=== PATIENT | female | born 1950 | race Caucasian/White ===

== ENCOUNTER → 2016-09-18 09:54 | Outpatient (CLI) | payer MEDICARE, OTHER ==
--- NOTE | 2016-09-18 10:58 | NUR ---
DIABETIC EDUCATION SPOUSE PRESENT WITH PT. REPORTS DM FOR PAST 3 YEARS. HAD DIET EDU SEVERAL TIMES WHEN FIRST DX'D. STATES SHE DID WELL UNTIL DIETITIAN MOVED AWAY. STATES SHE "FELL OFF THE WAGON". PT DOES HAVE GLUCOMETER AND CHECKS BS AM DAILY. REVIEWED CARB SOURCES, APPROPRIATE CARB CHOICES PER MEAL, SERVING SIZES. REVIEWED LABEL READING X2. ENCOURAGED LESS SODA, SWEET TEA. ALSO ENCOURAGE PT TO CHECK BS REGULARLY FOR A WEEK OR TWO TO SEE HOW HER BLOOD SUGAR IS RUNNING THRU OUT THE DAY. ADJUST CARB INTAKE ACCORDINGLY. ENCOURAGED GRADUAL INCREASE IN PHYSICAL ACTIVITY. EXPECT GOOD COMPLIANCE. ~ [address] FOLLOWING
== END | disposition home or self-care (01) ==
LOC: D.FANS 09:54 → D.MAMMO 11:00
DX: E11.9 Type 2 diabetes mellitus without complications (principal)

== ENCOUNTER 2017-08-06 10:43 | Outpatient (CLI) | payer MEDICARE, OTHER ==
[~2017-08-06] VITALS: Ht 152.4 cm; Wt 68.2 kg
--- NOTE | ~2017-08-06 | CN ---
PATIENT NAME:YENY MA MEDICAL RECORD: [id number] : 46 LOCATION:[facility]RIAN ADMIT DATE: ACCOUNT: [id number] CONSULTING PHYSICIAN: FRAN HALE MD REFERRING PHYSICIAN: ANASTACIO ADEN M.D. DATE OF CONSULTATION: 08/06/2017 REFERRING PHYSICIAN: Graham Aden MD BOTTLE DEALER: Fran Hale MD REASON FOR CONSULTATION: Coronary artery disease and aortic stenosis. HISTORY OF PRESENT ILLNESS: This patient was seen as an outpatient following the heart catheterization. She reports that up until about [place], she had been doing quite well, occasionally would have some dyspnea after walking about a mile, but was able to play tennis last fall. The patient reports that after an episode at [place], she had near syncope, chest pain under both axillae, and significant dyspnea with exertion. It did not recur. She underwent workup which included echocardiogram by Dr. Aden revealing significant aortic stenosis, valve area of 0.8 and heart catheterization today revealing significant 2-vessel coronary artery disease including diagonal branch with severe proximal LAD stenosis. Risk factors are positive for hypertension and hyperlipidemia. PAST MEDICAL HISTORY: Otherwise unremarkable. PAST SURGICAL HISTORY: Unremarkable. ALLERGIES: As listed. MEDICATIONS: As listed. SOCIAL HISTORY: Negative for tobacco and alcohol. FAMILY HISTORY: Negative. REVIEW OF SYSTEMS: Multipoint review of systems is negative, particularly no history of stroke or hematologic disorders. PHYSICAL EXAMINATION: GENERAL: Alert female, supine on the bed following cardiac catheterization, right wrist pressure intact at the cath site. HEENT: Head is atraumatic. Pupils equal, round and reactive to light. Extraocular movements intact. Sclerae nonicteric. Oral mucosa pink and moist. Carotids have no audible bruits, no lymphadenopathy. NECK: No palpable thyromegaly. No jugular venous distention noted. HEART: Regular rate and rhythm with a II/ systolic murmur heard loudest at the left precordium. LUNGS: Clear to auscultation bilaterally. No rales, rhonchi or wheeze noted. ABDOMEN: No palpable mass, tenderness, or organomegaly. EXTREMITIES: There is palpable bilateral 2+ femoral pulse and palpable left radial pulse. Dressing intact to the right radial. Lower extremities had no signs of vein stripping, varicose veins, cyanosis, clubbing or edema. SKIN: Normal and intact with no rashes or lesions. CONSULT REPORT [id number] YENY MA NEUROLOGIC: Intact. Cranial nerves intact. Gait not checked. ASSESSMENT: Multivessel coronary artery disease and aortic stenosis. PLAN: This patient is a good candidate for coronary bypass graft and aortic valve replacement. I discussed with the patient the alternatives, risks, benefits and recovery and her was present for the conversation. She is a hairdresser. We discussed about 8 weeks for returning to even light duty work. She gives consent. The plan will be for surgery on 08/10/2017. TRANSINT:[id number] Voice Confirmation ID: [id number] DOCUMENT ID: [id number] FRAN HALE MD at 1423 CC: ANASTACIO ADEN M.D. and MADELIN GARCIA MD [id number] DICTATION DATE: 08/06/171711 ACCOUNTING CLERKS SUPERVISOR: 08/06/17 190 DEP CLI 08/06/17 [address] [place] [address]
--- NOTE | ~2017-08-06 | HEMODYNAMI ---
PATIENT:YENY MA MEDICAL RECORD: [id number] : 46 LOCATION:[facility] ADMISSION DATE: 08/06/17 Generatedon:08/06/201713:31 Patient name: YENY MA Patient #: [id number] SSN: DO B: 1950 Date of study: 08/06/2017 Page: Of Hemodynamic Procedure Report Patient Data Patient Demographics Procedure consent was obtained First Name: YENY Gender: Female Last Name: ANIL : 1950 Patient #: [id number] Age: 66 year(s) Race: Unknown Additional ID: [id number] Contact details [address]: [address] [place] [address] State: [place] City: [place] Zip code: [address] Admission Admission Data Admission Date: 08/06/2017 Admission Time: 10:43 Procedure Procedure Types Cath Procedure Diagnostic Procedure LHC Coronaries only Aortic Root Angiography Procedure Description Procedure Date Procedure Date: 08/06/2017 Procedure Start Time: 13:14 Procedure End Time: 13:30 Procedure Staff Name Function Graham Aden MD Performing Physician Samy Quintana RT Monitor Jeffy Nielson RT Scrub Jono Barrios RN Nurse Procedure Data Cath Procedure Fluoroscopy Diagnostic fluoroscopy Total fluoroscopy Time: 2.1 time: 2.1 min min Diagnostic fluoroscopy Total fluoroscopy dose: 155 dose: 155 mGy mGy Contrast Material Contrast Material Type Amount (ml) Isovue 300 80 Entry Location Entry Primary Successful Side Size Upsize Upsize Entry Closure Nieves ccessful Closure Location (Fr) 1 (Fr) 2 (Fr) Remarks Device Remarks Radial Right 6 Fr Mechanical artery Short Compression Estimated blood loss: 10 ml Diagnostic catheters Device Type Used For End Catheter Placement DIAGNOSTIC Troutman 110cm 5 Procedure Fr catheter ([id number]) DIAGNOSTIC Pigtail 5Fr Procedure catheter ([id number]) Procedure Complications No complications Procedure Medications Medication Administration Route Dosage Oxygen NC 2 l/min Heparin Flush Bag added to field 2 bags (1000units/500ml NS) 0.9% NaCl I.V. 100 ml/hr Radial Cocktail added to field 1 syringe (Verapomil 2mg/Nitro 400mcg/Heparin 1500units) Fentanyl I.V. 50 mcg Versed I.V. 1 mg Fentanyl I.V. 50 mcg Versed I.V. 1 mg Radial Cocktail added to field 1 syringe (Verapomil 2mg/Nitro 400mcg/Heparin 1500units) Hemodynamics Rest Heart Rate: 79 (bpm) Pressure Samples Time Site Value (mmHg) Purpose Heart Use Rate(bpm) 13:18 AO 93/61(74) Snapshot 93 Snapshots Pre Cath Intra NCS Post Cath Vital Signs Time Heart Resp SPO2 etCO2 NIBP (mmHg) Rhythm Pain Sedation Rate (ipm) (%) (mmHg) Status Level (bpm) 13:03:39 80 18 96 0 143/82(110) NSR 0 (11) 10(A) , No pain 13:08:01 95 20 96 32.4 153/85(119) NSR 0 (11) 10(A) , No pain 13:12:19 80 17 88 31.7 127/67(96) NSR 0 (11) 10(A) , No pain 13:16:37 77 16 95 30.2 125/66(102) NSR 0 (11) 9(A) , No pain 13:20:55 84 17 95 31 110/59(83) NSR 0 (11) 9(A) , No pain 13:25:09 86 17 94 32.4 119/62(93) NSR 0 (11) 9(A) , No pain 13:28:09 81 16 93 25.8 128/70(93) NSR 0 (11) 9(A) , No pain Medications Time Medication Route Dose Verified Delivered Reason Notes Effectiveness by by 13:01:54 Oxygen NC 2 l/min Graham Jono Per Markie Barrios RN physician 13:02:02 Heparin Flush added 2 bags Graham De La Cruz used for Bag to Markie Barrios project internship (1000units/500ml field NS) 13:02:15 0.9% NaCl I.V. 100 Graham Jono Per ml/hr Markie Barrios RN physician 13:02:23 Radial Cocktail added 1 Graham Jono used for (Verapomil to syringe Markie Barrios project internship 2mg/Nitro field 400mcg/Heparin 1500units) 13:08:03 Fentanyl I.V. 50 mcg Graham Jono for sedation Markie Barrios RN 13:08:09 Versed I.V. 1 mg Graham Jono for sedation Markie Barrios RN 13:14:33 Fentanyl I.V. 50 mcg Graham Jono for sedation Markie Barrios RN 13:14:37 Versed I.V. 1 mg Graham Jono for sedation Markie Barrios RN 13:17:13 Radial Cocktail added 1 Graham Jono for (Verapomil to syringe Markie Barrios RN vasodilation 2mg/Nitro field 400mcg/Heparin 1500units) Procedure Log Time Note 12:40:08 Jefyf Nielson RT(R) sent for patient. Start room use. 12:52:08 Time tracking: Regular hours 12:52:12 Plan of Care:Hemodynamics will remain stable., Cardiac rhythm will remain stable., Comfort level will be maintained., Respiratory function will remain adequate., Patient/ family verbilizes understanding of procedure., Procedure tolerated without complication., Recovers from procedure without complications.. 12:54:58 Patient received from Pre/Post Procedure Room to [facility] Alert and oriented. Tansferred to table in Supine position. 12:54:59 Warm blankets applied, and maría hugger turned on for patient comfort. 12:55:00 Correct patient and procedure confirmed by team. 12:55:01 Signed procedure consent form obtained from patient. 12:55:01 ECG and BP/O2 sat monitors applied to patient. 13:01:54 Oxygen 2 l/min NC was administered by Jono Barrios RN; Per physician; 13:02:02 Heparin Flush Bag (1000units/500ml NS) 2 bags added to field was administered by Jono Barrios RN; used for procedure; 13:02:15 0.9% NaCl 100 ml/hr I.V. was administered by Jono Barrios RN; Per physician; 13:02:23 Radial Cocktail (Verapomil 2mg/Nitro 400mcg/Heparin 1500units) 1 syringe added to field was administered by Jono Barrios RN; used for procedure; 13:02:25 Vital chart was started 13:04:00 Baseline sample Acquired. 13:04:06 Rhythm: sinus rhythm 13:04:07 Full Disclosure recording started 13:04:26 H&P Date Dictated: 07/11/2017 Within 30 days and on chart., H&P Addendum completed by physician on day of procedure. (MUST COMPLETE FOR ALL OUTPATIENTS). 13:04:26 Pre-procedure instructions explained to patient. 13:04:27 Pre-op teaching completed and patient verbalized understanding. 13:04:39 Family in patients room. 13:04:40 Patient NPO since Midnight. 13:04:42 Is the patient allergic to Iodine/contrast media? No. 13:04:45 Is patient on blood thinner?No 13:05:30 Patient diabetic? Yes. 13:05:31 If diabetic: On Metformin? Yes 13:05:33 If on Metformin: Last Dose? 08/04/2017 13:05:47 Patient not . Patient is over age 55. 13:05:50 Previous problem with sedation/anesthesia? No ? 13:06:02 Snore? Yes 13:06:05 Sleep apnea? No 13:06:06 Deviated septum? No 13:06:07 Opens mouth fully? Yes 13:06:08 Sticks out tongue? Yes 13:06:17 Airway obstruction? Yes Asthma 13:06:22 Dentures? No ? 13:06:26 Pre procedure: right dorsailis pedis pulse 1+ Palpable, but thready & weak; easily obliterated 13:06:29 Modified Panchito's test Ulnar < 7 seconds 13:06:31 Patient pain scale 0/10 ?. 13:06:35 IV patent on arrival in left forearm with 0.9% NaCl at KVO. 13:06:38 Lab results completed and on chart. 13:06:57 Right Radial & Right Groin area was prepped with chlora-prep and draped in sterile fashion 13:06:58 Alarms reviewed by R. N. 13:06:59 Sharps counted by scrub and verified by R.N. 13:07:02 --------ALL STOP TIME OUT------ 13:07:02 Final Timeout: patient, procedure, and site verified with staff and physician. All members of the team are in agreement. 13:07:04 Right Radial & Right Groin site verified by team. 13:07:07 Physical assessment completed. ASA score P 2 - A patient with mild systemic disease as per Graham Aden MD. 13:07:10 Sedation plan: IV Moderate Sedation Medication:Versed, Fentanyl 13:08:03 Fentanyl 50 mcg I.V. was administered by Jono Barrios RN; for sedation; 13:08:09 Versed 1 mg I.V. was administered by Jono Barrios RN; for sedation; 13:14:25 Procedure started. 13:14:33 Fentanyl 50 mcg I.V. was administered by Jono Barrios RN; for sedation; 13:14:33 Local anesthetic to right radial artery with Lidocaine 2% by Graham Aden MD.INITIAL ACCESS ONLY 13:14:35 Use device set Radial Dx or PCI 13:14:37 Versed 1 mg I.V. was administered by Jono Barrios RN; for sedation; 13:14:38 ACIST Syringe (94869) opened to sterile field. 13:14:40 Tegaderm 4 x 4 (1626W) opened to sterile field. 13:14:41 ACIST Hand Control (22545) opened to sterile field. 13:14:42 ACIST Manifold (98020) opened to sterile field. 13:14:46 Medline Cath Pack ([id number]) opened to sterile field. 13:14:47 Bag Decanter (2002) opened to sterile field. 13:14:51 SHEATH 6FR Slender ([id number]) opened to sterile field. 13:14:52 DIAGNOSTIC WIRE .035 260cm J wire (041465) opened to sterile field. 13:14:53 MBrace Wrist Support ([id number]) opened to sterile field. 13:14:54 NEEDLE Cook 21G 4cm Radial (K12205) opened to sterile field. 13:15:00 Zero performed for pressure channel P1 13:16:00 A 6 Fr Short sheath was inserted into the Right Radial artery 13:17:13 Radial Cocktail (Verapomil 2mg/Nitro 400mcg/Heparin 1500units) 1 syringe added to field was administered by Jono Barrios RN; for vasodilation; 13:17:48 A DIAGNOSTIC Troutman 110cm 5 Fr catheter (220853) was advanced over the wire and used for Procedure. 13:19:22 LCA angiography performed. 13:21:12 RCA angiography performed. 13:22:21 Catheter exchanged over wire. 13:22:41 A DIAGNOSTIC Pigtail 5Fr catheter ([id number]) was advanced over the wire and used for Procedure. 13::52 Aortic Root visualized 13::55 Injector settings: Ml/sec: 15, Volume: 30, 13:24:52 Catheter exchanged over wire. 13:24:56 TR BAND Standard ([id number]) opened to sterile field. 13:25:10 Sheath removed intact; hemostasis achieved with Mechanical Compression to the Right Radial artery. 13:25:12 Procedure ended.(Physican Out) 13:25:32 Fluoroscopy time 02.10 minutes. 13:25:35 Fluoroscopy dose: 155 mGy 13:25:35 Flurop Dose total: 155 13:25:38 Contrast amount:Isovue 300 80ml. 13:25:39 Sharps counted by scrub and verified by R.N. 13:25:41 Insertion/operative site no bleeding no hematoma. 13:25:44 TR band inflated with 12cc of air. 13:25:46 Post Procedure Pulses reassessed and unchanged 13:25:49 Post-procedure physical assessment completed. ASA score P 2 - A patient with mild systemic disease as per Graham Aden MD. 13:25:51 Post procedure rhythm: unchanged. 13:25:54 Estimated blood loss: 10 ml 13:26:03 Post procedure instruction explained to patient.Patient verbalizes understanding. 13:26:03 Patient needs reinforcement of post procedure teaching. 13:26:16 Procedure type changed to Cath procedure, Diagnostic procedure, LHC, Coronaries only, Aortic Root Angiography 13:26:30 Procedure and supply charges have been captured, reviewed, submitted and are correct. 13::32 Procedure Complication : No complications 13:30:33 Vital chart was stopped 13::33 See physician's report for complete and final results. 13:30:38 Report given to Pre/Post Procedure Room. 13:30:42 Patient transfered to Pre/Post Procedure Room with Stretcher. 13::44 Procedure ended. 13::44 Full Disclosure recording stopped 13::52 End room use (Document Last) Device Usage Item Name Manufacture Quantity Catalog Hospital Part Current Minima l Lot# / Number Charge Number Stock Stock Serial# Code [facility] 67595 668873 044326 735810 20 Syringe Medical (20362) Systems Inc Tegaderm 4 x 3M 1 1626W 844814 047520 985402 5 4 (1626W) ACIST Hand Acist 1 91495 896585 763803 135646 5 Control Medical (23960) Systems Inc ACIST Acist 1 45025 158436 565314 559911 5 Manifold Medical (90763) Systems Inc Medline Cath Cardinal 1 [id number] 100454 22897 966074 5 Pack Health ([id number]) Bag Decanter Microtek 1 2001S 374143 26487 108901 5 (2001S) Medical Inc. SHEATH 6FR Terumo 1 [id number] 068489 928739 998501 40 Slender ([id number]) DIAGNOSTIC [facility] 1 239481 204738 858467 872891 30 WIRE .035 260cm J wire (787222) MBrace Wrist Advanced 1 140-0250-00 958196 33362 352353 5 Support Vascular (788075855) Dynamics NEEDLE Cook Cook Medical 1 [id number] 506596 955062 677292 5 21G 4cm Radial (D26110) DIAGNOSTIC Terumo 1 40-8493 344541 810444 258183 5 Troutman 110cm 5 Fr catheter (787475) DIAGNOSTIC Cardinal 1 [id number] 683046 658526 536435 5 Pigtail 5Fr Health catheter (989492I) TR BAND Terumo 1 [id number] 741880 640506 327392 40 Standard ([id number]) Signature Audit Hollister Stage Time Signature Unsigned Intra-Procedure 08/06/2017 Samy Quintana 1:31:04 PM RT(R) Signatures Monitor : Samy Quintana RT Signature : Date : Time : [facility] [address] [place] [address]
[2017-08-06] MEDS ORDERED: GLIMEPIRIDE2 MG PO (11:25)
[2017-08-06] MEDS ORDERED: GLUCOPHAGE1000 MG PO (11:25)
[2017-08-06] MEDS ORDERED: ZETIA10 MG PO (11:26)
[2017-08-06] MEDS ORDERED: ZOCOR40 MG PO (11:26)
[2017-08-06 11:31] LABS: BASOPHILS 0.8 % (0-2); EOSINOPHILS 3.2 % (0-7); HEMATOCRIT 41.6 % (36.0-48.0); HEMOGLOBIN 14.6 g/dL (12-16); IMMATURE GRANULOCYTES 0.2 % (0-5); LYMPHOCYTES 32.5 % (15-50); MCH 30.5 pg (26.0-34.0); MCHC 35.1 g/dL (31.0-37.0); MCV 86.8 fL (80.0-100.0); NEUTROPHILS 56.3 % (40-80); PLATELET COUNT 354 10x3/uL (130-400); RBC 4.79 10x6/uL (4.00-5.40); WBC 9.6 10x3/uL (4.8-10.8)
[2017-08-06 11:33] VITALS: BP 161/74; Ht 152.4 cm; Wt 68.2 kg
[2017-08-06 11:54] LABS: ANION GAP 13.4 mmol/L (8-16); CALCIUM 9.2 mg/dL (8.5-10.1); CARBON DIOXIDE 25.2 mmol/L (21.0-32.0); CREATININE - SERUM 0.9 mg/dL (0.6-1.3); POTASSIUM - SERUM 4.6 mmol/L (3.5-5.1)
== END 2017-08-06 16:20 | disposition home or self-care (01) ==
LOC: D.CATH 10:43
PROVIDERS: Internal Medicine Cardiovascular Disease
DX: I25.119 Atherosclerotic heart disease of native coronary artery with unspecified angina pectoris (principal); I35.2 Nonrheumatic aortic (valve) stenosis with insufficiency; Z01.812 Encounter for preprocedural laboratory examination

== ENCOUNTER 2017-08-10 07:30 | Inpatient (IN) | payer MEDICARE, OTHER ==
[~2017-08-10] VITALS: Ht 152.4 cm; Wt 71.6 kg
--- NOTE | ~2017-08-10 | OP ---
PATIENT NAME: YENY MA MEDICAL RECORD: [id number] :46 LOCATION:D.CVI D.CV04 ADMISSION DATE:08/14/17 SURGEON: FRAN HALE MD DATE OF OPERATION: 08/14/2017 SURGEON: Fran Hale MD PATROL OFFICER: Brayan Malik MD and WARREN Daly. PROCEDURE PERFORMED: 1. Aortic valve replacement, 19 mm pericardial bioprosthesis. 2. Coronary artery bypass graft 2 (left internal mammary to LAD, reverse saphenous vein graft from aorta to right coronary artery). PREOPERATIVE DIAGNOSES: Aortic stenosis, symptomatic and coronary artery disease including proximal LAD stenosis. POSTOPERATIVE DIAGNOSES: Aortic stenosis, symptomatic and coronary artery disease including proximal LAD stenosis. ANESTHESIA: General endotracheal anesthesia. ESTIMATED BLOOD LOSS: Total cardiopulmonary bypass with Cell Saver retransfusion, but no packed red blood cell transfusions. COMPLICATIONS: None. SPECIMENS: Aortic valve leaflets. CONDITION: Stable. DISPOSITION: CV ICU. OPERATIVE FINDINGS: 1. Transesophageal echocardiography confirmed good global contractility, calcified aortic valve, normal mitral valve. 2. Good quality left internal mammary artery consistent in size for the lady's size and the LAD was a 1.5 mm vessel. 3. The diagonal was small, severely diseased with no site amenable for bypass and therefore not bypassable. 4. Distal right coronary artery, 2.0 mm vessel. 5. Aortic valve leaflets fairly free of calcification, but the annulus was calcified and debrided 19 mm Integris valve. 6. The patient from cardiopulmonary bypass without vasopressors and transesophageal echocardiography confirmed no perivalvular leak. Good global contractility. OPERATIVE INDICATION: Symptomatic aortic stenosis and severe proximal LAD stenosis. OPERATIVE SUMMARY IN DETAIL: The patient was brought to the operating suite. General anesthesia was obtained, the patient prepped and draped. Greater saphenous vein was harvested in right lower extremity using bridging incisions, side branches were clipped, vessel was removed, perfused, the leg was later closed in 2 layers. OPERATIVE REPORT [id number] YENY MA Median sternotomy incision was made. Subcutaneous tissue divided with electrocautery. Sternum was divided with a saw. Left hemisternum was elevated. The pleural cavity was entered. Left internal mammary artery and vein was taken as a pedicle graft. Sternal retractor was placed. Pericardium was opened. Heparin was given. Aorta was cannulated. Dual stage venous cannula was inserted. The internal mammary was clipped distally and made ready for anastomosis. Retrograde cardioplegic cannula was inserted. The patient was placed on cardiopulmonary bypass. Left ventricular vent was placed through the right superior pulmonary vein. Aortic root vent and cardioplegia cannula was inserted. The crossclamp was placed. Cardioplegia given antegrade and retrograde. This repeated at 15 to 20 minutes intervals during the cross clamp time including down the completed vein graft. Distal anastomosis was performed in a standard technique with the vein graft first, then the aortic valve was performed, debriding the aortic valve. Interrupted sutures of a nonpledgeted suture from ventricular to aortic side, valve carefully lowered into place. No perivalvular leaks and inspecting through the valve with no obstruction of the valve below the sewing ring. The aortotomy was closed with double running pledgeted sutures. A distal internal mammary artery anastomosis was performed. The proximal anastomosis was performed. The old vent site was used for deairing. The patient was fully rewarmed. The left ventricular apex was de-aired. The patient's cross clamp was removed. The aortic root deairing site was oversewn. Transesophageal echocardiography was used for deairing. The patient resumed a normal rhythm after defibrillation and eventually was weaned from cardiopulmonary bypass when stable. The patient was decannulated. The cannula sites were oversewn. Protamine was given. The graft laid appropriately. Good Doppler signal was noted in the internal mammary and the vein graft. Drains were placed in the mediastinum and left pleural cavity. Atrial and ventricular pacing wires were placed. After thorough irrigation, hemostasis was assured. The pericardium was loosely reapproximated in the midline and the sternum was closed with wires including a weave along the left side of the sternum. The patient was stable and chest closed. Fascia was closed. Subcutaneous tissue was closed. Skin was closed. Dermabond was placed. The needle and sponge counts were reported as correct. The patient was taken to ICU in stable condition. TRANSINT:[id number] Voice Confirmation ID: [id number] DOCUMENT ID: [id number] FRAN HALE MD at 1057 CC: ANASTACIO NG M.D. [id number] DICTATION DATE: 08/14/17 153 MOLD YARN SUPERVISOR: 08/14/[address] [facility] [address] [id number]
--- NOTE | ~2017-08-10 | TEE ---
PATIENT:YENY MA MEDICAL RECORD: [id number] LOCATION:[place] [address] AGE OF PATIENT: 66 ADMISSION DATE: 08/14/17 SEX: F REFERRING PHYSICIAN: INTERPRETING PHYSICIAN: YVONNE DISLA MD TRANSESOPHAGEAL ECHOCARDIOGRAM Date: CORBY CHARGE Y INDICATIONS: CABG/AVR PREMEDICATIONS: PATIENT'S RESPONSE PROCEDURE DOPPLER MEASUREMENTS: LVIT LA PA RA LVOT RVOT Asc. Ao AV Gradient Peak AV Mean AV Area MV Gradient Peak MV Mean MV Area INTERPRETATION: Doppler: 2-D: EF 60%, MOD/SEVERE COLOR FLOW DOPPLER TRACE MR/AI NORMAL SALINE STUDY: MISCELLANOUS: DIAGNOSIS: PLAN: Optical Element Coater:2 Dr. Aden Aircraft Structural Repairer: Meño CALLE COMMENTS: PATIENT OF ALEXIA DATE OF SERVICE: 08/14/2017 PROCEDURE: Transesophageal echo evaluation of valvular structures during bypass surgery. FINDINGS: 1. Left ventricular chamber size is within normal limits. Left ventricular systolic function is normal. Overall ejection fraction estimated at 60%. 2. Left atrium, right atrium, and right ventricle chamber sizes are within TRANSESOPHAGEAL ECHOCARDIOGRAM REPORT [id number] YENY MA normal limits. 3. Valvular structures: Aortic valve demonstrates severe calcific aortic stenosis; however, this is not a new finding. The patient is scheduled for aortic valve replacement. The remaining valvular structures have normal structure and motion. 4. Doppler interrogation reveals elsewise mild aortic insufficiency, mild mitral regurgitation. No other valvular insufficiency or stenosis. 5. No evidence of pericardial effusion or left ventricular thrombus. TRANSINT:[id number] Voice Confirmation ID: [id number] DOCUMENT ID: [id number] at 1056 CC: [id number] DICTATION DATE: 08/15/17 0959 INVESTMENT EXECUTIVE: 08/15/17 1354 DIS IN 08/21/17 [facility] [address] [place] [address]
[~2017-08-10 07:30] MED LIST: GLIMEPIRIDE2 MG PO; GLUCOPHAGE1000 MG PO; ZETIA10 MG PO; ZOCOR40 MG PO
[2017-08-13] MEDS ORDERED: CLARITIN 10 MG10 MG PO (09:02)
[2017-08-13 10:53] LABS: BASOPHILS 0.7 % (0-2); EOSINOPHILS 2.7 % (0-7); HEMATOCRIT 43.2 % (36.0-48.0); IMMATURE GRANULOCYTES 0.3 % (0-5); LYMPHOCYTES 22.6 % (15-50); MCH 30.4 pg (26.0-34.0); MCHC 34.7 g/dL (31.0-37.0); MCV 87.6 fL (80.0-100.0); MEAN PLATELET VOLUME 10.2 fL (7.4-10.4); NEUTROPHILS 67.7 % (40-80); PLATELET COUNT 355 10x3/uL (130-400); RBC 4.93 10x6/uL (4.00-5.40); RDW 11.9 % (11.5-14.5); WBC 10.8 10x3/uL (4.8-10.8)
[2017-08-13 10:57] LABS: APTT 25.5 SECONDS (22.8-39.4); INR 0.95 (0.85-1.17); PROTIME 12.3 SECONDS (11.6-15.0)
[2017-08-13 11:11] LABS: ALBUMIN 3.7 g/dL (3.4-5.0); ANION GAP 13.4 mmol/L (8-16); BILIRUBIN - TOTAL 0.34 mg/dL (0.2-1.3); CALCIUM 9.2 mg/dL (8.5-10.1); CARBON DIOXIDE 27.7 mmol/L (21.0-32.0); CREATININE - SERUM 0.9 mg/dL (0.6-1.3); PHOSPHOROUS 3.9 mg/dL (2.5-4.9); POTASSIUM - SERUM 4.1 mmol/L (3.5-5.1); PROTEIN - SERUM 7.6 g/dL (6.4-8.2); T4 THYROXIN - FREE 0.91 ng/dL (0.76-1.46); THYROID STIMULATING HORMONE 1.76 uIU/mL (0.36-3.74); URIC ACID 5.4 mg/dL (2.6-7.2)
[2017-08-13 11:40] LABS: APPEARANCE CLEAR (CLEAR); BILIRUBIN NEGATIVE (NEGATIVE); COLOR STRAW (YELLOW); GLUCOSE NEGATIVE (NEGATIVE); KETONE NEGATIVE (NEGATIVE); NITRITE NEGATIVE (NEGATIVE); PROTEIN NEGATIVE (NEGATIVE); UROBILINOGEN NORMAL (NORMAL); WHITE CELLS - URINE OCC /hpf (0-5)
[2017-08-13 11:41] LABS: BACTERIA FEW /hpf (NONE SEEN); EPITHELIAL CELLS OCC /hpf (0-5)
[2017-08-14] VITALS (39 sets, daily range): BP systolic 93–132; BP diastolic 41–75; BMI 28.9; BMI 32.2
[2017-08-14 08:38] LABS: PLT FUNCT.(P2Y12) PLAVIX 199 PRU (194-418)
[2017-08-14 13:46] LABS: HEMATOCRIT 31.8 % (36.0-48.0); HEMOGLOBIN 11.1 g/dL (12-16); MCH 30.2 pg (26.0-34.0); MCHC 34.9 g/dL (31.0-37.0); MCV 86.4 fL (80.0-100.0); MEAN PLATELET VOLUME 9.8 fL (7.4-10.4); RBC 3.68 10x6/uL (4.00-5.40); RDW 12.1 % (11.5-14.5); WBC 23.4 10x3/uL (4.8-10.8)
[2017-08-14 13:49] LABS: CARBON DIOXIDE 27.4 mmol/L (21.0-32.0); CHLORIDE - SERUM 115 mmol/L (98-107); CREATININE - SERUM 0.7 mg/dL (0.6-1.3); GLUCOSE 133 mg/dL (74-106); SODIUM 150 mmol/L (136-145); eGFR NON AFRICAN AMERICAN 88 mL/min (90-120)
[2017-08-14 13:53] LABS: CALC OSMOLALITY 299 mosm/kg (275-300); CALCIUM 6.9 mg/dL (8.5-10.1); UREA NITROGEN 12 mg/dL (7-18)
[2017-08-14 14:22] LABS: APTT 36.9 SECONDS (22.8-39.4); INR 1.5 (0.85-1.17); PROTIME 17.6 SECONDS (11.6-15.0)
[2017-08-15] VITALS (53 sets, daily range): BP systolic 101–130; BP diastolic 38–64; Ht 152.4 cm; Wt 71.6 kg
[2017-08-15 06:09] LABS: HEMATOCRIT 33.2 % (36.0-48.0); HEMOGLOBIN 11.1 g/dL (12-16); MCH 29.6 pg (26.0-34.0); MCHC 33.4 g/dL (31.0-37.0); MEAN PLATELET VOLUME 10.1 fL (7.4-10.4); RBC 3.75 10x6/uL (4.00-5.40); RDW 12.5 % (11.5-14.5)
[2017-08-15 06:19] LABS: MCV 88.5 fL (80.0-100.0); WBC 14.9 10x3/uL (4.8-10.8)
[2017-08-15 06:27] LABS: ALKALINE PHOSPHATASE 44 U/L (46-116); ALT (SGPT) 21 U/L (10-68); BILIRUBIN - TOTAL 0.58 mg/dL (0.2-1.3); CALC OSMOLALITY 294 mosm/kg (275-300); CALCIUM 7.4 mg/dL (8.5-10.1); CARBON DIOXIDE 25.4 mmol/L (21.0-32.0); CHLORIDE - SERUM 113 mmol/L (98-107); CREATININE - SERUM 0.7 mg/dL (0.6-1.3); GLUCOSE 173 mg/dL (74-106); POTASSIUM - SERUM 3.9 mmol/L (3.5-5.1); SODIUM 147 mmol/L (136-145); UREA NITROGEN 10 mg/dL (7-18); eGFR NON AFRICAN AMERICAN 88 mL/min (90-120)
[2017-08-15 06:29] LABS: ALBUMIN 2.4 g/dL (3.4-5.0); PROTEIN - SERUM 4.8 g/dL (6.4-8.2)
[2017-08-16] VITALS (35 sets, daily range): BP systolic 114–144; BP diastolic 44–73
[2017-08-16 06:19] LABS: ALBUMIN 2.2 g/dL (3.4-5.0); ALKALINE PHOSPHATASE 50 U/L (46-116); ALT (SGPT) 18 U/L (10-68); CALC OSMOLALITY 283 mosm/kg (275-300); CALCIUM 7.6 mg/dL (8.5-10.1); CARBON DIOXIDE 26.5 mmol/L (21.0-32.0); CHLORIDE - SERUM 108 mmol/L (98-107); CREATININE - SERUM 0.7 mg/dL (0.6-1.3); GLUCOSE 180 mg/dL (74-106); POTASSIUM - SERUM 3.4 mmol/L (3.5-5.1); PROTEIN - SERUM 5.3 g/dL (6.4-8.2); SODIUM 141 mmol/L (136-145); UREA NITROGEN 8 mg/dL (7-18); eGFR NON AFRICAN AMERICAN 88 mL/min (90-120)
[2017-08-16 07:11] LABS: HEMOGLOBIN 10.2 g/dL (12-16); MCH 29.1 pg (26.0-34.0); MCHC 32.9 g/dL (31.0-37.0); MCV 88.6 fL (80.0-100.0); MEAN PLATELET VOLUME 10.6 fL (7.4-10.4); RBC 3.5 10x6/uL (4.00-5.40); RDW 12.7 % (11.5-14.5); WBC 18.2 10x3/uL (4.8-10.8)
[2017-08-17] VITALS (23 sets, daily range): BP systolic 95–150; BP diastolic 30–72
[2017-08-17 04:17] LABS: HEMATOCRIT 31.6 % (36.0-48.0); HEMOGLOBIN 10.4 g/dL (12-16); MCH 29.7 pg (26.0-34.0); MCHC 32.9 g/dL (31.0-37.0); MCV 90.3 fL (80.0-100.0); MEAN PLATELET VOLUME 10.4 fL (7.4-10.4); RBC 3.5 10x6/uL (4.00-5.40); RDW 12.9 % (11.5-14.5); WBC 18.1 10x3/uL (4.8-10.8)
[2017-08-17 04:39] LABS: ALBUMIN 2.2 g/dL (3.4-5.0); ALKALINE PHOSPHATASE 58 U/L (46-116); ALT (SGPT) 16 U/L (10-68); CALC OSMOLALITY 285 mosm/kg (275-300); CALCIUM 8.1 mg/dL (8.5-10.1); CARBON DIOXIDE 25.1 mmol/L (21.0-32.0); CHLORIDE - SERUM 107 mmol/L (98-107); CREATININE - SERUM 0.6 mg/dL (0.6-1.3); GLUCOSE 138 mg/dL (74-106); POTASSIUM - SERUM 3.7 mmol/L (3.5-5.1); SODIUM 143 mmol/L (136-145); UREA NITROGEN 9 mg/dL (7-18); eGFR NON AFRICAN AMERICAN > 90 mL/min (90-120)
[2017-08-18] VITALS (24 sets, daily range): BP systolic 92–136; BP diastolic 36–66
[2017-08-18 05:13] LABS: HEMATOCRIT 26.4 % (36.0-48.0); HEMOGLOBIN 8.4 g/dL (12-16); MCH 29.1 pg (26.0-34.0); MCHC 31.8 g/dL (31.0-37.0); MCV 91.3 fL (80.0-100.0); RBC 2.89 10x6/uL (4.00-5.40); RDW 12.9 % (11.5-14.5)
[2017-08-18 05:38] LABS: ALBUMIN 1.8 g/dL (3.4-5.0); ALKALINE PHOSPHATASE 53 U/L (46-116); BILIRUBIN - TOTAL 0.37 mg/dL (0.2-1.3); CALCIUM 7.2 mg/dL (8.5-10.1); CARBON DIOXIDE 26.3 mmol/L (21.0-32.0); CHLORIDE - SERUM 107 mmol/L (98-107); CREATININE - SERUM 0.5 mg/dL (0.6-1.3); GLUCOSE 102 mg/dL (74-106); POTASSIUM - SERUM 3.2 mmol/L (3.5-5.1); PROTEIN - SERUM 5.1 g/dL (6.4-8.2); SODIUM 143 mmol/L (136-145); eGFR NON AFRICAN AMERICAN > 90 mL/min (90-120)
[2017-08-18 05:45] LABS: ALT (SGPT) 11 U/L (10-68); CALC OSMOLALITY 284 mosm/kg (275-300); UREA NITROGEN 12 mg/dL (7-18)
[2017-08-19] VITALS (24 sets, daily range): BP systolic 113–144; BP diastolic 38–68
[2017-08-19 04:59] LABS: HEMATOCRIT 28.5 % (36.0-48.0); HEMOGLOBIN 9.2 g/dL (12-16); MCH 29.1 pg (26.0-34.0); MCHC 32.3 g/dL (31.0-37.0); MCV 90.2 fL (80.0-100.0); MEAN PLATELET VOLUME 9.8 fL (7.4-10.4); RBC 3.16 10x6/uL (4.00-5.40); RDW 12.6 % (11.5-14.5); WBC 11.2 10x3/uL (4.8-10.8)
[2017-08-19 05:25] LABS: ALKALINE PHOSPHATASE 72 U/L (46-116); BILIRUBIN - TOTAL 0.56 mg/dL (0.2-1.3); CALC OSMOLALITY 281 mosm/kg (275-300); CALCIUM 7.4 mg/dL (8.5-10.1); CARBON DIOXIDE 26.8 mmol/L (21.0-32.0); CHLORIDE - SERUM 106 mmol/L (98-107); CREATININE - SERUM 0.5 mg/dL (0.6-1.3); GLUCOSE 134 mg/dL (74-106); PROTEIN - SERUM 5.6 g/dL (6.4-8.2); SODIUM 141 mmol/L (136-145); UREA NITROGEN 9 mg/dL (7-18); eGFR NON AFRICAN AMERICAN > 90 mL/min (90-120)
[2017-08-19 05:26] LABS: ALT (SGPT) 26 U/L (10-68)
[2017-08-20] VITALS (24 sets, daily range): BP systolic 111–140; BP diastolic 44–61
[2017-08-20 04:13] LABS: BASOPHILS 0.5 % (0-2); EOSINOPHILS 3.3 % (0-7); HEMATOCRIT 29.1 % (36.0-48.0); HEMOGLOBIN 9.6 g/dL (12-16); IMMATURE GRANULOCYTES 0.8 % (0-5); LYMPHOCYTES 11.8 % (15-50); MCH 29.8 pg (26.0-34.0); MCV 90.4 fL (80.0-100.0); MEAN PLATELET VOLUME 9.8 fL (7.4-10.4); MONOCYTES 5.8 % (2-11); NEUTROPHILS 77.8 % (40-80); PLATELET COUNT 138 10x3/uL (130-400); RBC 3.22 10x6/uL (4.00-5.40); RDW 12.6 % (11.5-14.5); WBC 11.1 10x3/uL (4.8-10.8)
[2017-08-20 04:33] LABS: ALBUMIN 2.1 g/dL (3.4-5.0); ALKALINE PHOSPHATASE 98 U/L (46-116); ALT (SGPT) 96 U/L (10-68); BILIRUBIN - TOTAL 0.73 mg/dL (0.2-1.3); CALC OSMOLALITY 277 mosm/kg (275-300); CARBON DIOXIDE 28.1 mmol/L (21.0-32.0); CHLORIDE - SERUM 104 mmol/L (98-107); CREATININE - SERUM 0.5 mg/dL (0.6-1.3); GLUCOSE 134 mg/dL (74-106); POTASSIUM - SERUM 3.9 mmol/L (3.5-5.1); PROTEIN - SERUM 5.9 g/dL (6.4-8.2); SODIUM 139 mmol/L (136-145); UREA NITROGEN 8 mg/dL (7-18); eGFR NON AFRICAN AMERICAN > 90 mL/min (90-120)
[2017-08-21] VITALS (16 sets, daily range): BP systolic 110–135; BP diastolic 49–62
[2017-08-21] MEDS ORDERED: HEMOCYTE PLUS C1 CAP PO (12:43)
[2017-08-21] MEDS ORDERED: LOPRESSOR25 MG PO (12:44)
[2017-08-21] MEDS ORDERED: HYDROCODONE-APA1 TAB PO (12:44)
[2017-08-21] MEDS ORDERED: ASPIRIN81 MG PO (12:44)
[2017-08-21] MEDS ORDERED: B&O SUPP1 SUPP.REC RC (12:45)
[2017-08-21] MEDS ORDERED: LASIX40 MG PO (12:46)
[2017-08-21] MEDS ORDERED: K-DUR20 MEQ PO (12:46)
[2017-08-22] MEDS ORDERED: HUMULIN R100 U/ML SC (13:58)
== END 2017-08-21 15:30 | DRG 235 ==
LOC: D.SDCHOLD 07:30 → D.CVICU 08-14 05:00 → D.SDCHOLD 08-14 05:00 → D.CVICU 08-14 13:40
PROVIDERS: Thoracic Surgery (Cardiothoracic Vascular Surgery)
PROC: 06BP0ZZ Excision of Right Saphenous Vein, Open Approach (ICD-10-PCS; 2017-08-14)
PROC: 5A1221Z Performance of Cardiac Output, Continuous (ICD-10-PCS; 2017-08-14)
PROC: B245ZZ4 Ultrasonography of Left Heart, Transesophageal (ICD-10-PCS; 2017-08-14)
PROC: 02100A9 Bypass Coronary Artery, One Artery from Left Internal Mammary with Autologous Arterial Tissue, Open Approach (ICD-10-PCS; principal; 2017-08-14 07:30)
PROC: 021009W Bypass Coronary Artery, One Artery from Aorta with Autologous Venous Tissue, Open Approach (ICD-10-PCS; 2017-08-14 07:30)
PROC: 02HV33Z Insertion of Infusion Device into Superior Vena Cava, Percutaneous Approach (ICD-10-PCS; 2017-08-17)
PROC: B548ZZA Ultrasonography of Superior Vena Cava, Guidance (ICD-10-PCS; 2017-08-17)
DX: I25.10 Atherosclerotic heart disease of native coronary artery without angina pectoris (principal); I63.9 Cerebral infarction, unspecified; G81.94 Hemiplegia, unspecified affecting left nondominant side; I35.0 Nonrheumatic aortic (valve) stenosis; R47.9 Unspecified speech disturbances; D64.9 Anemia, unspecified

== ENCOUNTER 2017-08-21 16:15 | Inpatient (IN) | payer MEDICARE, OTHER ==
[~2017-08-21] VITALS: Ht 152.4 cm; Wt 71.7 kg
--- NOTE | ~2017-08-21 | RHP ---
PATIENT: YENY MA MEDICAL RECORD: [id number] ACCOUNT: [id number] LOCATION:[facility]15 : 46 ADMISSION DATE: 08/21/17 REHABILITATION HISTORY AND PHYSICAL EXAMINATION POST ADMISSION PHYSICIAN EXAMINATION DATE OF ADMISSION TO THE REHAB: 08/21/2017. 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 HISTORY OF PRESENT ILLNESS: The patient is a 66-year-old female patient who presented to inpatient rehab with a right periop CVA. She has past medical history of coronary artery disease, symptomatic aortic stenosis, and diabetes. She is admitted to the hospital on 08/14/2017 and underwent AVR and CABG with 2 vessels in the right coronary artery and left anterior descending. On postop day #1, she was lethargic, had slow speech and left-sided weakness. Her lethargy was not affected by Narcan. 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 A periop CVA was prospected and bedside swallow eval showed no signs of aspiration with thick or thin liquids. Previously, she worked banquet line cook as a hairdresser. She was independent with ADLs and mobility. Currently, she is back to her baseline mentally. She is alert and oriented. Her speech was clear, but she has left-sided weakness, left upper extremity 2/5 and left lower extremity 2/5. She is max assist to total assist for sit to stand and bed to chair. She is in a normal sinus rhythm, intermittent sinus tach on conveyor monitor. She is on 2 liters of O2 with sats in the 90s. She has been incontinent of stool times 9. A Olvera catheter has been placed for accurate I's and O's. She has good support from her spouse, would like to return home after discharge. COMORBIDITIES: Include status post aortic valve replacement, status post coronary artery bypass grafting, severe proximal left anterior descending stenosis of bilateral pleural effusions, lethargy, dysarthria of speech, anemia, hypokalemia, fever with T-max of 100.2, coronary artery disease, diabetes, asthma, and arthritis. PAST MEDICAL HISTORY: Significant for coronary artery disease, aortic stenosis, diabetes mellitus, and arthritis. PAST SURGICAL HISTORY: Includes coronary artery bypass grafting and aortic valve replacement. ALLERGIES: No known drug allergies. CURRENT MEDICATIONS: Include Amaryl 2 mg b.i.d. She is on Zocor 40 mg daily, Leora 60 mg b.i.d., furosemide 40 mg daily, Zetia 10 mg daily, aspirin chewable 81 mg daily. She is on a glucose replacement protocol. She is on a low resistant sliding scale of regular insulin. She is on potassium 20 mEq b.i.d., B&O suppository as needed. She is on Lopressor 25 mg b.i.d., Iaeger 10/325 one tab q.3 hours p.r.n. pain. She is on Hemocyte Plus 1 cap b.i.d., and polyethylene glycol 17 grams in 8 ounces of water daily. HABITS: No current alcohol or tobacco use. FAMILY HISTORY: Noncontributory. HISTORY AND PHYSICAL [id number] YENY MA SOCIAL HISTORY: The patient hopes to return back home with her spouse and get back to her prior level of functioning. REVIEW OF SYSTEMS: GENERAL: Does complain of weakness. HEENT: She denies cold, cough, or congestion. CARDIOVASCULAR: Denies chest pain. PHYSICAL EXAMINATION: VITAL SIGNS: Stable, afebrile. GENERAL: A well-developed, slightly obese female, in no acute distress, alert upon exam. HEENT: Normocephalic and atraumatic. Mucosa moist. NECK: Supple. No lymphadenopathy. LUNGS: Clear at this time. HEART: Regular rate and rhythm. ABDOMEN: Benign. EXTREMITIES: No clubbing, cyanosis or edema. NEUROLOGIC: Does have weakness on the left side. LABORATORY DATA: White count is 11.3, H&H of 10.8 and 32.0, her platelet count was noted to be 45,000. Sodium 137, potassium 3.9, BUN and creatinine of 13 and 0.6 and blood sugar is noted to be 124. On admit UA, she did have trace leukocyte esterase and 5-10 white blood cells and a few bacteria. ASSESSMENT: This 66-year-old female patient admitted to rehab with a working diagnosis of periop CVA secondary to aortic valve replacement and coronary artery bypass grafting. The patient has potential to make improvement. We instituted the following multidisciplinary therapies including, but not limited physical, occupational, respiratory, speech, nutritional services, prosthetics and orthotics. Given her complex condition and risk for more complications, rehabilitation services cannot be provided at a low level of care such as a custodial facility. PLAN: 1. Admit to [facility] rehab for intensive inpatient therapy to include the following disciplines: A. Physical therapy to improve gait, all transfer skills and bed mobility to a modified independent level. B. Occupational therapy to improve activities of daily living to a modified independent level. C. Case management to assist with discharge planning and placement options. D. Nutrition to assist with nutritional needs. E. Rehabilitation nursing to assist in monitoring the patient's underlying medical conditions and to assist with any type of bowel or bladder management. 2. The patient's current medication and medical care will be continued. 3. The patient will be placed on standard fall precautions. 4. The patient's estimated length of stay is approximately 7-10 days. 5. Discuss this patient during care team staff meeting this week. I am going to go and watch her urine closely. Hold off antibiotics at this time. TRANSINT:[id number] Voice Confirmation ID: [id number] DOCUMENT ID: [id number] RASHEED notes whether there has been none or any medical/functional HISTORY AND PHYSICAL [id number] YENY MA change since admission: - RASHEED attests patient continues to be appropriate for IRF: - LINDA FOWLER MD at 1344 CC: [id number] DICTATION DATE: 08/22/17 0848 TOWER EQUIPMENT INSTALLER: 08/22/17 1009 DIS IN 08/22/17 [facility] [address] [id number]
--- NOTE | ~2017-08-21 | DS ---
PATIENT:YENY MA :46 MEDICAL RECORD: [id number] DISCHARGE SUMMARY ADMISSION DATE: 08/21/17 DISCHARGE DATE: 08/22/17 This is a discharge from inpatient rehab dated 08/22/2017. PRIMARY DIAGNOSIS: Decreased functional mobility and ability to provide activities of daily living secondary to perioperative right cerebrovascular accident. SECONDARY DIAGNOSES: 1. Status post aortic valve replacement and coronary artery bypass grafting. 2. Coronary artery disease. 3. Aortic stenosis. 4. Diabetes. 5. Anemia. 6. Hypokalemia. 7. Arthritis. 8. Thrombocytopenia. CONSULTS THIS HOSPITALIZATION: Cardiovascular surgery with Dr. Ceron. HOSPITAL COURSE: Full H&P is located elsewhere on the chart on this 66-year-old female who was admitted to inpatient rehab for physical therapy and occupational therapy to improve gait, transfer skills, bed mobility, and activities of daily living to a modified independent level. She was evaluated by PT and OT. Fingerstick blood sugars were monitored throughout her stay with appropriate adjustment in medications as needed. Electrolytes were managed by protocol. She was seen by cardiovascular and thoracic surgery, Dr. Ceron for a precipitous drop in platelets. She was transferred to the acute care facility for higher level of care before therapy was instituted. DISCHARGE MEDICATIONS: As per discharge medication reconciliation. DISCHARGE DISPOSITION: The patient is discharged to the acute hospital. She will continue her current diet and level of activity and will follow with primary care and specialists. At least 30 minutes was spent in this discharge activity. TRANSINT:[id number] Voice Confirmation ID: [id number] DOCUMENT ID: [id number] Dictated By: MONSTER SMITH I have interviewed/examined the above patient and agree with these documented findings. DISCHARGE SUMMARY REPORT [id number] YENY MA SCOTT MD at 1355 at 1349 CC: [id number] DICTATION DATE: 09/09/17 1510 AGRICULTURAL AIRCRAFT PILOT: 09/09/17 1543 DIS IN 08/22/17 [facility] [address] [place] [address]
[~2017-08-21 16:15] MED LIST changes: +ASPIRIN81 MG PO; +B&O SUPP1 SUPP.REC RC; +CLARITIN 10 MG10 MG PO; +HEMOCYTE PLUS C1 CAP PO; +HYDROCODONE-APA1 TAB PO; +K-DUR20 MEQ PO; +LASIX40 MG PO; +LOPRESSOR25 MG PO
[2017-08-21 16:29] VITALS: BP 119/59
[2017-08-21 18:14] LABS: APPEARANCE CLEAR (CLEAR); BILIRUBIN NEGATIVE (NEGATIVE); COLOR YELLOW (YELLOW); GLUCOSE NEGATIVE (NEGATIVE); KETONE LARGE mg/dL (NEGATIVE); NITRITE NEGATIVE (NEGATIVE); PROTEIN NEGATIVE (NEGATIVE); UROBILINOGEN NORMAL (NORMAL)
[2017-08-21 18:16] LABS: RED CELLS - URINE 0-5 /hpf (0-5)
[2017-08-21 18:17] LABS: BACTERIA FEW /hpf (NONE SEEN)
[2017-08-21 20:00] VITALS: BP 142/63
[2017-08-22 06:47] LABS: CALC OSMOLALITY 274 mosm/kg (275-300); CALCIUM 8.3 mg/dL (8.5-10.1); CARBON DIOXIDE 25.3 mmol/L (21.0-32.0); CHLORIDE - SERUM 101 mmol/L (98-107); CREATININE - SERUM 0.6 mg/dL (0.6-1.3); GLUCOSE 122 mg/dL (74-106); POTASSIUM - SERUM 3.9 mmol/L (3.5-5.1); SODIUM 137 mmol/L (136-145); UREA NITROGEN 13 mg/dL (7-18); eGFR NON AFRICAN AMERICAN > 90 mL/min (90-120)
[2017-08-22 07:01] LABS: BASOPHILS 0.4 % (0-2); EOSINOPHILS 3.4 % (0-7); HEMOGLOBIN 10.8 g/dL (12-16); IMMATURE GRANULOCYTES 0.9 % (0-5); LYMPHOCYTES 13.6 % (15-50); MCH 29.8 pg (26.0-34.0); MCHC 33.8 g/dL (31.0-37.0); MCV 88.4 fL (80.0-100.0); MEAN PLATELET VOLUME 11.5 fL (7.4-10.4); MONOCYTES 6.8 % (2-11); NEUTROPHILS 74.9 % (40-80); RBC 3.62 10x6/uL (4.00-5.40); RDW 12.8 % (11.5-14.5); WBC 11.3 10x3/uL (4.8-10.8)
[2017-08-22 07:08] LABS: PLATELET COUNT 45 10x3/uL (130-400)
[2017-08-22 10:36] LABS: PLATELET ESTIMATE DECREASED
[2017-08-22 11:13] VITALS: BP 147/65
[2017-08-22 13:33] VITALS: Ht 152.4 cm; Wt 71.7 kg
[2017-08-22] MEDS ORDERED: HUMULIN R100 U/ML SC (13:58)
[2017-08-23] MEDS ORDERED: FEXOFENADINE HC60 MG PO (03:25)
[2017-08-23] MEDS ORDERED: MIRALAX17 GM PO (03:25)
== END 2017-08-22 14:50 | disposition short-term general hospital (02) | DRG 57 ==
LOC: D.REHAB 16:15
PROVIDERS: Emergency Medicine
DX: I69.354 Hemiplegia and hemiparesis following cerebral infarction affecting left non-dominant side (principal); J90 Pleural effusion, not elsewhere classified; I69.322 Dysarthria following cerebral infarction; E87.6 Hypokalemia; I25.10 Atherosclerotic heart disease of native coronary artery without angina pectoris; Z95.1 Presence of aortocoronary bypass graft; Z95.2 Presence of prosthetic heart valve

== ENCOUNTER 2017-08-22 14:25 | Inpatient (IN) | payer MEDICARE, OTHER ==
[2017-08-22] VITALS (12 sets, daily range): BP systolic 106–137; BP diastolic 45–68; BMI 31.2
[~2017-08-22] VITALS: Ht 152.4 cm; Wt 63.0 kg
[~2017-08-22 14:25] MED LIST changes: +HUMULIN R100 U/ML SC
[2017-08-22 15:44] LABS: APTT 25.9 SECONDS (22.8-39.4); INR 1.11 (0.85-1.17); PROTIME 13.9 SECONDS (11.6-15.0)
[2017-08-22 15:50] LABS: ALBUMIN 2.4 g/dL (3.4-5.0); BILIRUBIN - TOTAL 0.59 mg/dL (0.2-1.3); PROTEIN - SERUM 6.5 g/dL (6.4-8.2)
[2017-08-22 16:01] LABS: BILIRUBIN - DIRECT 0.19 mg/dL (0.00-0.30); BILIRUBIN - INDIRECT 0.4 mg/dL (0.00-1.00)
[2017-08-23] VITALS (24 sets, daily range): BP systolic 103–155; BP diastolic 33–67; Ht 152.4 cm; Wt 63.0 kg
[2017-08-23] MEDS ORDERED: FEXOFENADINE HC60 MG PO (03:25)
[2017-08-23] MEDS ORDERED: MIRALAX17 GM PO (03:25)
[2017-08-23 04:49] LABS: ALBUMIN 2.2 g/dL (3.4-5.0); ALKALINE PHOSPHATASE 101 U/L (46-116); ALT (SGPT) 54 U/L (10-68); BILIRUBIN - TOTAL 0.63 mg/dL (0.2-1.3); CALC OSMOLALITY 278 mosm/kg (275-300); CALCIUM 8.1 mg/dL (8.5-10.1); CARBON DIOXIDE 25.6 mmol/L (21.0-32.0); CHLORIDE - SERUM 102 mmol/L (98-107); CREATININE - SERUM 0.6 mg/dL (0.6-1.3); GLUCOSE 119 mg/dL (74-106); POTASSIUM - SERUM 3.9 mmol/L (3.5-5.1); PROTEIN - SERUM 6.2 g/dL (6.4-8.2); SODIUM 139 mmol/L (136-145); UREA NITROGEN 12 mg/dL (7-18); eGFR NON AFRICAN AMERICAN > 90 mL/min (90-120)
[2017-08-23 04:53] LABS: APTT 60.8 SECONDS (22.8-39.4); INR 2.48 (0.85-1.17); PROTIME 26.1 SECONDS (11.6-15.0)
[2017-08-23 05:14] LABS: HEMATOCRIT 30.4 % (36.0-48.0); HEMOGLOBIN 10.2 g/dL (12-16); MCH 29.4 pg (26.0-34.0); MCHC 33.6 g/dL (31.0-37.0); MCV 87.6 fL (80.0-100.0); MEAN PLATELET VOLUME 10.9 fL (7.4-10.4); RBC 3.47 10x6/uL (4.00-5.40); RDW 12.9 % (11.5-14.5); WBC 10.6 10x3/uL (4.8-10.8)
[2017-08-23 10:18] LABS: APPEARANCE HAZY (CLEAR); BACTERIA FEW /hpf (NONE SEEN); BILIRUBIN NEGATIVE (NEGATIVE); COLOR YELLOW (YELLOW); EPITHELIAL CELLS RARE /hpf (0-5); GLUCOSE NEGATIVE (NEGATIVE); KETONE SMALL mg/dL (NEGATIVE); NITRITE NEGATIVE (NEGATIVE); PROTEIN NEGATIVE (NEGATIVE); RED CELLS - URINE OCC /hpf (0-5); SPECIFIC GRAVITY 1.005 (1.005-1.020); UROBILINOGEN NORMAL (NORMAL)
[2017-08-23 10:19] LABS: MUCUS <1+ /lpf (NONE SEEN)
[2017-08-24] VITALS (24 sets, daily range): BP systolic 105–161; BP diastolic 48–86
[2017-08-24 05:30] LABS: HEMOGLOBIN 10.3 g/dL (12-16); MCH 29.3 pg (26.0-34.0); MCHC 33.2 g/dL (31.0-37.0); MCV 88.3 fL (80.0-100.0); MEAN PLATELET VOLUME 10.8 fL (7.4-10.4); RBC 3.51 10x6/uL (4.00-5.40); RDW 13.2 % (11.5-14.5); WBC 10.6 10x3/uL (4.8-10.8)
[2017-08-24 05:42] LABS: INR 2.76 (0.85-1.17); PROTIME 28.5 SECONDS (11.6-15.0)
[2017-08-24 05:47] LABS: APTT 93.2 SECONDS (22.8-39.4)
[2017-08-24 05:54] LABS: ALBUMIN 2.4 g/dL (3.4-5.0); ALKALINE PHOSPHATASE 127 U/L (46-116); CALC OSMOLALITY 282 mosm/kg (275-300); CALCIUM 8.5 mg/dL (8.5-10.1); CARBON DIOXIDE 26.1 mmol/L (21.0-32.0); CHLORIDE - SERUM 107 mmol/L (98-107); CREATININE - SERUM 0.7 mg/dL (0.6-1.3); GLUCOSE 89 mg/dL (74-106); POTASSIUM - SERUM 3.7 mmol/L (3.5-5.1); PROTEIN - SERUM 6.4 g/dL (6.4-8.2); SODIUM 143 mmol/L (136-145); UREA NITROGEN 11 mg/dL (7-18); eGFR NON AFRICAN AMERICAN 88 mL/min (90-120)
[2017-08-24 05:57] LABS: ALT (SGPT) 77 U/L (10-68)
[2017-08-25] VITALS (23 sets, daily range): BP systolic 107–159; BP diastolic 42–72
[2017-08-25 05:55] LABS: HEMATOCRIT 31.6 % (36.0-48.0); HEMOGLOBIN 10.5 g/dL (12-16); MCH 29.5 pg (26.0-34.0); MCHC 33.2 g/dL (31.0-37.0); MCV 88.8 fL (80.0-100.0); MEAN PLATELET VOLUME 11.8 fL (7.4-10.4); RBC 3.56 10x6/uL (4.00-5.40); RDW 13.2 % (11.5-14.5); WBC 13.1 10x3/uL (4.8-10.8)
[2017-08-25 06:05] LABS: APTT 60.9 SECONDS (22.8-39.4); INR 2.56 (0.85-1.17); PROTIME 26.8 SECONDS (11.6-15.0)
[2017-08-25 06:21] LABS: ALBUMIN 2.6 g/dL (3.4-5.0); ALKALINE PHOSPHATASE 157 U/L (46-116); ALT (SGPT) 77 U/L (10-68); BILIRUBIN - TOTAL 0.54 mg/dL (0.2-1.3); CALC OSMOLALITY 277 mosm/kg (275-300); CALCIUM 8.5 mg/dL (8.5-10.1); CARBON DIOXIDE 25.4 mmol/L (21.0-32.0); CHLORIDE - SERUM 103 mmol/L (98-107); CREATININE - SERUM 0.7 mg/dL (0.6-1.3); GLUCOSE 124 mg/dL (74-106); POTASSIUM - SERUM 4.2 mmol/L (3.5-5.1); PROTEIN - SERUM 6.7 g/dL (6.4-8.2); SODIUM 139 mmol/L (136-145); UREA NITROGEN 10 mg/dL (7-18); eGFR NON AFRICAN AMERICAN 88 mL/min (90-120)
[2017-08-25 09:06] LABS: INR 2.9 (0.85-1.17); PROTIME 29.6 SECONDS (11.6-15.0)
[2017-08-25 09:08] LABS: APTT 82.5 SECONDS (22.8-39.4)
[2017-08-26] VITALS (23 sets, daily range): BP systolic 105–154; BP diastolic 33–75
[2017-08-26 07:05] LABS: INR 2.51 (0.85-1.17); PROTIME 26.4 SECONDS (11.6-15.0)
[2017-08-26 07:06] LABS: APTT 73.9 SECONDS (22.8-39.4)
[2017-08-26 07:07] LABS: HEMATOCRIT 32.1 % (36.0-48.0); HEMOGLOBIN 10.7 g/dL (12-16); MCH 29.4 pg (26.0-34.0); MCHC 33.3 g/dL (31.0-37.0); MCV 88.2 fL (80.0-100.0); MEAN PLATELET VOLUME 10.7 fL (7.4-10.4); RBC 3.64 10x6/uL (4.00-5.40); RDW 13.5 % (11.5-14.5); WBC 12.1 10x3/uL (4.8-10.8)
[2017-08-26 07:10] LABS: ALBUMIN 2.7 g/dL (3.4-5.0); ALKALINE PHOSPHATASE 156 U/L (46-116); ALT (SGPT) 78 U/L (10-68); BILIRUBIN - TOTAL 0.51 mg/dL (0.2-1.3); CALC OSMOLALITY 279 mosm/kg (275-300); CALCIUM 8.6 mg/dL (8.5-10.1); CARBON DIOXIDE 25.3 mmol/L (21.0-32.0); CHLORIDE - SERUM 105 mmol/L (98-107); CREATININE - SERUM 0.6 mg/dL (0.6-1.3); GLUCOSE 100 mg/dL (74-106); POTASSIUM - SERUM 4.3 mmol/L (3.5-5.1); PROTEIN - SERUM 6.9 g/dL (6.4-8.2); SODIUM 141 mmol/L (136-145); UREA NITROGEN 9 mg/dL (7-18); eGFR NON AFRICAN AMERICAN > 90 mL/min (90-120)
[2017-08-27] VITALS (16 sets, daily range): BP systolic 111–153; BP diastolic 33–63
[2017-08-27 06:19] LABS: HEMATOCRIT 31.8 % (36.0-48.0); HEMOGLOBIN 10.5 g/dL (12-16); MCH 29.2 pg (26.0-34.0); MCV 88.3 fL (80.0-100.0); MEAN PLATELET VOLUME 10.7 fL (7.4-10.4); RBC 3.6 10x6/uL (4.00-5.40); RDW 13.4 % (11.5-14.5); WBC 12.4 10x3/uL (4.8-10.8)
[2017-08-27 06:26] LABS: INR 2.38 (0.85-1.17); PROTIME 25.3 SECONDS (11.6-15.0)
[2017-08-27 06:27] LABS: APTT 67.5 SECONDS (22.8-39.4)
[2017-08-27 06:47] LABS: ALBUMIN 2.7 g/dL (3.4-5.0); ALKALINE PHOSPHATASE 137 U/L (46-116); ALT (SGPT) 66 U/L (10-68); BILIRUBIN - TOTAL 0.48 mg/dL (0.2-1.3); CALC OSMOLALITY 277 mosm/kg (275-300); CALCIUM 8.5 mg/dL (8.5-10.1); CARBON DIOXIDE 25.5 mmol/L (21.0-32.0); CHLORIDE - SERUM 103 mmol/L (98-107); CREATININE - SERUM 0.6 mg/dL (0.6-1.3); GLUCOSE 124 mg/dL (74-106); POTASSIUM - SERUM 4.1 mmol/L (3.5-5.1); PROTEIN - SERUM 6.9 g/dL (6.4-8.2); SODIUM 139 mmol/L (136-145); UREA NITROGEN 9 mg/dL (7-18); eGFR NON AFRICAN AMERICAN > 90 mL/min (90-120)
[2017-08-27] MEDS ORDERED: ELIQUIS5 MG PO (10:25)
[2017-08-27] MEDS ORDERED: CALMOSEPTINE OI71 GM TOPICAL (10:27)
== END 2017-08-27 16:00 | DRG 813 ==
LOC: D.CVICU 14:25
PROVIDERS: Internal Medicine Hematology & Oncology; Thoracic Surgery (Cardiothoracic Vascular Surgery)
PROC: 02HV33Z Insertion of Infusion Device into Superior Vena Cava, Percutaneous Approach (ICD-10-PCS; principal; 2017-08-23)
PROC: 02PY33Z Removal of Infusion Device from Great Vessel, Percutaneous Approach (ICD-10-PCS; 2017-08-23)
DX: D75.82 Heparin induced thrombocytopenia (HIT) (principal); I63.9 Cerebral infarction, unspecified; I82.621 Acute embolism and thrombosis of deep veins of right upper extremity; N39.0 Urinary tract infection, site not specified; I35.0 Nonrheumatic aortic (valve) stenosis; I25.10 Atherosclerotic heart disease of native coronary artery without angina pectoris; E11.9 Type 2 diabetes mellitus without complications; Z95.1 Presence of aortocoronary bypass graft; Z95.2 Presence of prosthetic heart valve; R19.5 Other fecal abnormalities

== ENCOUNTER 2017-08-27 16:29 | Inpatient (IN) | payer MEDICARE, OTHER ==
[~2017-08-27] VITALS: Ht 152.4 cm; Wt 64.4 kg
--- NOTE | ~2017-08-27 | RHP ---
PATIENT: YENY MA MEDICAL RECORD: [id number] ACCOUNT: [id number] [facility] AD[facility]ION DATE: 08/27/17 REHABILITATION HISTORY AND PHYSICAL EXAMINATION POST ADMISSION PHYSICIAN EXAMINATION DATE OF ADMISSION: 08/27/2017 ADMITTING DIAGNOSIS: Right perioperative cerebrovascular accident. HISTORY OF PRESENT ILLNESS: The patient is a 66-year-old female patient who was admitted with a right perioperative CVA. She has past medical history of coronary artery disease, symptomatic aortic stenosis. She was admitted to the hospital on 08/14/2017 and underwent an aortic valve repair and coronary artery bypass grafting times 2. On postop day #1, she was lethargic, has slow speech and left-sided weakness. Her lethargy was not affected by Narcan. A CT of her head showed no acute intracranial abnormality. A periop CVA was suspected. The bedside swallow eval showed no signs of problems with aspiration with thick or thin liquids. She was admitted to acute rehab on 08/22/2017, but had critical drop in her platelets of 40,000 with what was thought to be a heparin-induced thrombocytopenia. The heparin-induced platelet antibody was elevated at 3.292. After 5 days of argatroban therapy, her platelets were up to 132. She has continued to do well. Currently, she is confused and disoriented at times. Her speech was clear, but she has left-sided hemiplegia, worse on the left. She is max to total assist for sit to stand, also just to sit on the side of the bed and go from bed to chair. She is in a normal sinus rhythm. She is on room air with sats in the 90s. She has been incontinent of stool times 9, but is now complaining of constipation. She has a Olvera catheter for accurate in's and out's. She has a good support from her spouse and hopefully will discharge back home when she leaves the rehabilitation. COMORBIDITIES: In this patient include heparin-induced thrombocytopenia, right axillary DVT hemiplegia, status post aortic valve, status post coronary artery bypass grafting, lethargy, left-sided weakness, hypokalemia, coronary artery disease, diabetes, asthma, arthritis. PAST MEDICAL HISTORY: Significant for weakness, diabetes, valvular problems. PAST SURGICAL HISTORY: Includes a cyst removed from her breast, also aortic valve repair, coronary artery bypass grafting times 2. ALLERGIES: No known drug allergies. CURRENT MEDICATIONS: Include furosemide 40 mg daily. She is on Zetia 10 mg daily, aspirin chewable 81 mg daily, Zocor 40 mg q.h.s., potassium 20 mEq b.i.d., MiraLax 17 grams in ounces of water daily, B&O suppository p.r.n., Lopressor 25 mg b.i.d., Calmoseptine as needed. She is on Gulliver 10/325 one tab q.4 hours p.r.n., Amaryl 2 mg b.i.d. with meals, Leora 60 mg b.i.d., and Eliquis 5 mg b.i.d. HABITS: No alcohol or tobacco use. FAMILY HISTORY: Noncontributory. SOCIAL HISTORY: The patient hopes to return back home and get back to her prior HISTORY AND PHYSICAL [id number] ANIL,YENY level of functioning. She does have a who is very supportive. REVIEW OF SYSTEMS: GENERAL: Does complain of weakness. She denies cold, cough, or congestion. CARDIOVASCULAR: Denies chest pain. PHYSICAL EXAMINATION: VITAL SIGNS: Stable, afebrile. GENERAL: An elderly female, in no acute distress, alert upon exam. HEENT: Normocephalic and atraumatic. Mucosa moist. NECK: Supple. No lymphadenopathy. LUNGS: Clear at this time. HEART: Irregular rate and rhythm. ABDOMEN: Benign. EXTREMITIES: No clubbing, cyanosis or edema. NEUROLOGIC: She does have noted left-sided weakness. She does have a little bit of mild confusion here this morning. LABORATORY DATA: White count is 12.2, H&H of 10.9 and 32.9, and platelet count is 178. Sodium 138, potassium 4.1, BUN and creatinine of 12 and 0.7, and blood sugar is noted to be 132. Her UA was positive for blood and nitrites. She also has 2+ leukocyte esterase and many bacteria. ASSESSMENT: This 66-year-old female patient admitted to rehab with a working diagnosis of CVA, associated with surgery. The patient has potential to make improvement. We instituted the following multiple disciplinary therapies including, but not limited to physical, occupational, respiratory, speech, nutritional services, prosthetics and orthotics. Given her complex condition and risk for more complications, rehabilitation services cannot be provided at a lower level of care such as residential facility. PLAN: 1. Admit to [facility] rehab for intensive inpatient therapy to include the following disciplines: A. Physical therapy to improve gait, all transfer skills and bed mobility to a modified independent level. B. Occupational therapy to improve activities of daily living to a modified independent level. C. Case management to assist with discharge planning and placement options. D. Nutrition to assist with nutritional needs. E. Rehabilitation nursing to assist in monitoring the patient's underlying medical conditions and to assist with any type of bowel or bladder management. 2. The patient's current medication and medical care will be continued. 3. The patient will be placed on standard fall precautions. 4. The patient's estimated length of stay is approximately 7-10 days. 5. Discuss this patient during care team staff meeting this week. We will also have speech therapy involved in her care and I will get follow up for her. TRANSINT:[id number] Voice Confirmation ID: [id number] DOCUMENT ID: [id number] RASHEED notes whether there has been none or any medical/functional change since admission: - No change since preadmission screen. HISTORY AND PHYSICAL [id number] YENY MA attests patient continues to be appropriate for IRF: - Continues to be appropriate. LINDA FOWLER MD at 1511 CC: [id number] DICTATION DATE: 08/28/17 0802 REAL ESTATE DIRECTOR: 08/28/17 1019 ADM IN [id number] [place] [id number]
[~2017-08-27 16:29] MED LIST changes: +CALMOSEPTINE OI71 GM TOPICAL; +ELIQUIS5 MG PO; +FEXOFENADINE HC60 MG PO; +MIRALAX17 GM PO
[2017-08-27 17:57] VITALS: BP 133/57; BMI 27.7
[2017-08-27 19:22] VITALS: BP 133/57
[2017-08-27 19:23] VITALS: BP 133/57
[2017-08-28 01:14] LABS: APPEARANCE HAZY (CLEAR); BILIRUBIN NEGATIVE (NEGATIVE); COLOR YELLOW (YELLOW); GLUCOSE NEGATIVE (NEGATIVE); KETONE NEGATIVE (NEGATIVE); NITRITE POSITIVE (NEGATIVE); PROTEIN NEGATIVE (NEGATIVE); UROBILINOGEN NORMAL (NORMAL)
[2017-08-28 01:16] LABS: BACTERIA MANY /hpf (NONE SEEN); EPITHELIAL CELLS 0-5 /hpf (0-5); RED CELLS - URINE 0-5 /hpf (0-5)
[2017-08-28 04:40] LABS: BASOPHILS 0.6 % (0-2); EOSINOPHILS 2.9 % (0-7); HEMATOCRIT 32.9 % (36.0-48.0); HEMOGLOBIN 10.9 g/dL (12-16); IMMATURE GRANULOCYTES 0.5 % (0-5); LYMPHOCYTES 18.3 % (15-50); MCH 29.3 pg (26.0-34.0); MCHC 33.1 g/dL (31.0-37.0); MCV 88.4 fL (80.0-100.0); MEAN PLATELET VOLUME 10.6 fL (7.4-10.4); MONOCYTES 5.8 % (2-11); NEUTROPHILS 71.9 % (40-80); RBC 3.72 10x6/uL (4.00-5.40); RDW 13.3 % (11.5-14.5); WBC 12.2 10x3/uL (4.8-10.8)
[2017-08-28 04:41] LABS: PLATELET COUNT 178 10x3/uL (130-400)
[2017-08-28 04:57] LABS: CALC OSMOLALITY 277 mosm/kg (275-300); CALCIUM 8.8 mg/dL (8.5-10.1); CARBON DIOXIDE 25.1 mmol/L (21.0-32.0); CHLORIDE - SERUM 102 mmol/L (98-107); CREATININE - SERUM 0.7 mg/dL (0.6-1.3); GLUCOSE 132 mg/dL (74-106); POTASSIUM - SERUM 4.1 mmol/L (3.5-5.1); SODIUM 138 mmol/L (136-145); eGFR NON AFRICAN AMERICAN 88 mL/min (90-120)
[2017-08-28 05:00] LABS: UREA NITROGEN 12 mg/dL (7-18)
[2017-08-28 08:14] VITALS: BP 132/55
[2017-08-28 12:51] VITALS: BMI 27.7
[2017-08-28 19:24] VITALS: BP 145/89
[2017-08-28 19:28] VITALS: Ht 152.4 cm; Wt 64.4 kg
[2017-08-29 04:51] LABS: BASOPHILS 0.6 % (0-2); HEMATOCRIT 33.4 % (36.0-48.0); IMMATURE GRANULOCYTES 0.5 % (0-5); LYMPHOCYTES 22.3 % (15-50); MCH 29.4 pg (26.0-34.0); MCHC 32.9 g/dL (31.0-37.0); MCV 89.3 fL (80.0-100.0); MEAN PLATELET VOLUME 10.9 fL (7.4-10.4); MONOCYTES 7.6 % (2-11); PLATELET COUNT 191 10x3/uL (130-400); RBC 3.74 10x6/uL (4.00-5.40); RDW 13.6 % (11.5-14.5); WBC 10.9 10x3/uL (4.8-10.8)
[2017-08-29 05:01] LABS: CALC OSMOLALITY 276 mosm/kg (275-300); CALCIUM 8.8 mg/dL (8.5-10.1); CARBON DIOXIDE 25.2 mmol/L (21.0-32.0); CHLORIDE - SERUM 102 mmol/L (98-107); CREATININE - SERUM 0.7 mg/dL (0.6-1.3); GLUCOSE 118 mg/dL (74-106); POTASSIUM - SERUM 4.1 mmol/L (3.5-5.1); SODIUM 138 mmol/L (136-145); UREA NITROGEN 13 mg/dL (7-18); eGFR NON AFRICAN AMERICAN 88 mL/min (90-120)
[2017-08-29 08:01] VITALS: BP 134/60
[2017-08-29 19:46] VITALS: BP 124/68
[2017-08-30 08:23] VITALS: BP 134/56
[2017-08-30 19:17] VITALS: BP 185/87
[2017-08-31 06:14] LABS: BASOPHILS 0.5 % (0-2); EOSINOPHILS 2.4 % (0-7); HEMATOCRIT 33.1 % (36.0-48.0); HEMOGLOBIN 10.8 g/dL (12-16); IMMATURE GRANULOCYTES 0.5 % (0-5); LYMPHOCYTES 17.7 % (15-50); MCHC 32.6 g/dL (31.0-37.0); MEAN PLATELET VOLUME 10.9 fL (7.4-10.4); MONOCYTES 9.7 % (2-11); NEUTROPHILS 69.2 % (40-80); RBC 3.72 10x6/uL (4.00-5.40); RDW 13.9 % (11.5-14.5)
[2017-08-31 06:15] LABS: PLATELET COUNT 244 10x3/uL (130-400)
[2017-08-31 06:28] LABS: CALC OSMOLALITY 282 mosm/kg (275-300); CALCIUM 9.1 mg/dL (8.5-10.1); CARBON DIOXIDE 25.3 mmol/L (21.0-32.0); CHLORIDE - SERUM 103 mmol/L (98-107); CREATININE - SERUM 0.6 mg/dL (0.6-1.3); GLUCOSE 126 mg/dL (74-106); POTASSIUM - SERUM 3.8 mmol/L (3.5-5.1); SODIUM 141 mmol/L (136-145); UREA NITROGEN 12 mg/dL (7-18); eGFR NON AFRICAN AMERICAN > 90 mL/min (90-120)
[2017-08-31 08:30] VITALS: BP 121/51
[2017-08-31 21:55] VITALS: BP 122/53
[2017-09-01 08:00] VITALS: BP 132/56
[2017-09-01 20:50] VITALS: BP 117/54
[2017-09-02 08:39] VITALS: BP 117/51
[2017-09-02 21:10] VITALS: BP 120/49
[2017-09-03 05:24] LABS: BASOPHILS 0.7 % (0-2); EOSINOPHILS 2.5 % (0-7); HEMATOCRIT 34.5 % (36.0-48.0); HEMOGLOBIN 11.5 g/dL (12-16); IMMATURE GRANULOCYTES 0.3 % (0-5); LYMPHOCYTES 19.7 % (15-50); MCH 29.9 pg (26.0-34.0); MCHC 33.3 g/dL (31.0-37.0); MCV 89.8 fL (80.0-100.0); MEAN PLATELET VOLUME 10.3 fL (7.4-10.4); MONOCYTES 7.4 % (2-11); NEUTROPHILS 69.4 % (40-80); PLATELET COUNT 251 10x3/uL (130-400); RBC 3.84 10x6/uL (4.00-5.40); RDW 13.6 % (11.5-14.5); WBC 10.4 10x3/uL (4.8-10.8)
[2017-09-03 05:28] LABS: CALC OSMOLALITY 280 mosm/kg (275-300); CALCIUM 8.7 mg/dL (8.5-10.1); CHLORIDE - SERUM 104 mmol/L (98-107); CREATININE - SERUM 0.6 mg/dL (0.6-1.3); GLUCOSE 102 mg/dL (74-106); POTASSIUM - SERUM 3.8 mmol/L (3.5-5.1); SODIUM 141 mmol/L (136-145); UREA NITROGEN 12 mg/dL (7-18); eGFR NON AFRICAN AMERICAN > 90 mL/min (90-120)
[2017-09-03 07:40] VITALS: BP 149/69
[2017-09-03 19:19] VITALS: BP 147/65
[2017-09-04 08:00] VITALS: BP 135/52
[2017-09-04 19:09] VITALS: BP 168/44
[2017-09-05 08:00] VITALS: BP 114/51
[2017-09-05 22:07] VITALS: BP 169/61
[2017-09-06 08:00] VITALS: BP 129/65
[2017-09-06 19:09] VITALS: BP 132/50
[2017-09-07 06:33] LABS: BASOPHILS 0.7 % (0-2); EOSINOPHILS 3.6 % (0-7); HEMATOCRIT 34.9 % (36.0-48.0); IMMATURE GRANULOCYTES 0.2 % (0-5); LYMPHOCYTES 24.5 % (15-50); MCH 28.7 pg (26.0-34.0); MCHC 31.5 g/dL (31.0-37.0); MCV 91.1 fL (80.0-100.0); MEAN PLATELET VOLUME 11.1 fL (7.4-10.4); MONOCYTES 7.4 % (2-11); NEUTROPHILS 63.6 % (40-80); PLATELET COUNT 261 10x3/uL (130-400); RBC 3.83 10x6/uL (4.00-5.40); RDW 13.3 % (11.5-14.5); WBC 9.7 10x3/uL (4.8-10.8)
[2017-09-07 06:50] LABS: CALC OSMOLALITY 281 mosm/kg (275-300); CALCIUM 8.8 mg/dL (8.5-10.1); CARBON DIOXIDE 27.7 mmol/L (21.0-32.0); CHLORIDE - SERUM 106 mmol/L (98-107); CREATININE - SERUM 0.7 mg/dL (0.6-1.3); GLUCOSE 95 mg/dL (74-106); POTASSIUM - SERUM 3.6 mmol/L (3.5-5.1); SODIUM 141 mmol/L (136-145); UREA NITROGEN 15 mg/dL (7-18); eGFR NON AFRICAN AMERICAN 88 mL/min (90-120)
[2017-09-07 08:00] VITALS: BP 126/60
[2017-09-07 20:39] VITALS: BP 124/52
[2017-09-08 08:38] VITALS: BP 126/52
[2017-09-08 20:54] VITALS: BP 135/78
[2017-09-09 09:09] VITALS: BP 128/59
[2017-09-09 20:00] VITALS: BP 133/46
[2017-09-10 06:08] LABS: EOSINOPHILS 3.6 % (0-7); HEMATOCRIT 34.5 % (36.0-48.0); IMMATURE GRANULOCYTES 0.1 % (0-5); LYMPHOCYTES 31.7 % (15-50); MCH 28.9 pg (26.0-34.0); MCHC 31.9 g/dL (31.0-37.0); MCV 90.6 fL (80.0-100.0); MEAN PLATELET VOLUME 11.1 fL (7.4-10.4); MONOCYTES 6.9 % (2-11); NEUTROPHILS 56.7 % (40-80); PLATELET COUNT 279 10x3/uL (130-400); RBC 3.81 10x6/uL (4.00-5.40); RDW 13.3 % (11.5-14.5); WBC 8.2 10x3/uL (4.8-10.8)
[2017-09-10 06:27] LABS: CALC OSMOLALITY 280 mosm/kg (275-300); CALCIUM 8.8 mg/dL (8.5-10.1); CHLORIDE - SERUM 105 mmol/L (98-107); CREATININE - SERUM 0.6 mg/dL (0.6-1.3); GLUCOSE 87 mg/dL (74-106); POTASSIUM - SERUM 3.6 mmol/L (3.5-5.1); SODIUM 141 mmol/L (136-145); UREA NITROGEN 14 mg/dL (7-18); eGFR NON AFRICAN AMERICAN > 90 mL/min (90-120)
[2017-09-10 08:00] VITALS: BP 123/55
[2017-09-10 19:54] VITALS: BP 134/50
[2017-09-11 08:00] VITALS: BP 112/45
[2017-09-11 19:48] VITALS: BP 142/46
[2017-09-12 08:00] VITALS: BP 129/64
[2017-09-12 20:06] VITALS: BP 121/50
[2017-09-13 08:00] VITALS: BP 115/55
== END 2017-09-13 15:58 | disposition home health service (06) | DRG 65 ==
LOC: D.REHAB 16:29
PROVIDERS: Emergency Medicine
DX: I63.9 Cerebral infarction, unspecified (principal); G81.94 Hemiplegia, unspecified affecting left nondominant side; I82.A11 Acute embolism and thrombosis of right axillary vein; D75.82 Heparin induced thrombocytopenia (HIT); Z95.1 Presence of aortocoronary bypass graft; Z95.2 Presence of prosthetic heart valve; R53.83 Other fatigue; R53.1 Weakness; E87.6 Hypokalemia; I25.10 Atherosclerotic heart disease of native coronary artery without angina pectoris; E11.9 Type 2 diabetes mellitus without complications; J45.909 Unspecified asthma, uncomplicated; M19.90 Unspecified osteoarthritis, unspecified site

== ENCOUNTER → 2018-04-29 14:43 | Outpatient (CLI) | payer MEDICARE, OTHER ==
[2017-08-28 19:28] VITALS: BMI 27.7
== END | disposition home or self-care (01) ==
LOC: D.MRI 14:43
DX: M75.92 Shoulder lesion, unspecified, left shoulder (principal)

== ENCOUNTER → 2018-12-18 09:58 | Outpatient (CLI) | payer MEDICARE, OTHER ==
[2017-08-28 19:28] VITALS: BMI 27.7
== END | disposition home or self-care (01) ==
LOC: D.LAB 09:58
PROVIDERS: ATTEND Family Medicine
DX: Z86.718 Personal history of other venous thrombosis and embolism (principal)